=== PATIENT | female | born 1970 | race Two or more races ===

== ENCOUNTER 2017-11-23 12:51 | Emergency (ER) | payer OTHER | END 2017-11-23 13:56 | disposition home or self-care (01) | LOC: ER 12:51 | DX: M43.6 Torticollis (principal) | CPT/HCPCS: 99283 ==

== ENCOUNTER 2018-04-29 10:18 | Emergency (ER) | payer OTHER ==
[~2018-04-29] VITALS: Ht 162.6 cm; Wt 63.5 kg
[~2018-04-29 10:18] MED LIST: DIAZ5TAB PO; IBUP-1007 PO
[2018-04-29 10:32] VITALS: BP 135/89
--- NOTE | 2018-04-29 10:57 | PHYS DOC ---
Past Medical History Past Medical History: No Pertinent History Past Surgical History: Tubal ligation Alcohol Use: None Drug Use: None Adult General Chief Complaint Chief Complaint: MUSCLE SPASM/CRAMP HPI HPI 47 y/o female presents to ER with family who are translating as pt speaks minimal [place]e. Pt woke this morning with neck pain with increased pain with movements. She denies fever, recent illness, sore throat, or recent injury. She denies any OTC meds for pain. She denies SIM, dizziness, or tinnitus. Review of Systems Review of Systems Constitutional: Denies fever or chills [] Eyes: Denies change in visual acuity, redness, or eye pain [] HENT: Denies nasal congestion or sore throat [] Respiratory: Denies cough or shortness of breath [] Cardiovascular: No additional information not addressed in HPI [] GI: Denies abdominal pain, nausea, vomiting, bloody stools or diarrhea [] : Denies dysuria or hematuria [] Musculoskeletal: Denies back pain or joint pain [] Integument: Denies rash or skin lesions [] Neurologic: Denies headache, focal weakness or sensory changes [] Endocrine: Denies polyuria or polydipsia [] All other systems were reviewed and found to be within normal limits, except as documented in this note. Current Medications Current Medications Current Medications Medications (Trade) Dose Ordered Sig/Sunni Start Time Stop Time Status Last Admin Dose Admin Ibuprofen (Motrin) 600 mg 1X ONCE 04/29/18 11:00 04/29/18 11:01 DC 04/29/18 11:01 600 MG Lidocaine (Lidoderm) 1 patch DAILY 04/29/18 11:30 04/29/18 12:07 DC 04/29/18 11:23 1 PATCH Allergies Allergies Allergies Coded Allergies Type Severity Reaction Last Updated Verified No Known Drug Allergies 08/02/13 No Physical Exam Physical Exam Constitutional: Well developed, well nourished, no acute distress, non-toxic appearance. [] HENT: Normocephalic, atraumatic, bilateral external ears normal, oropharynx moist, no oral exudates, nose normal. [] Eyes: PERRLA, EOMI, conjunctiva normal, no discharge. [] Neck: Normal range of motion, no tenderness, supple, no stridor. [] Cardiovascular:Heart rate regular rhythm, no murmur [] Lungs & Thorax: Bilateral breath sounds clear to auscultation [] Abdomen: Bowel sounds normal, soft, no tenderness, no masses, no pulsatile masses. [] Skin: Warm, dry, no erythema, no rash. [] Back: No tenderness, no CVA tenderness. [] Extremities: No tenderness, no cyanosis, no clubbing, ROM intact, no edema. [] Neurologic: Alert and oriented X 3, normal motor function, normal sensory function, no focal deficits noted. [] Psychologic: Affect normal, judgement normal, mood normal. [] Current Patient Data Vital Signs Vital Signs Date Time Temp Pulse Resp B/P (MAP) Pulse Ox O2 Delivery O2 Flow Rate FiO2 04/29/18 10:32 97.8 85 16 135/89 (104) 99 Room Air 97.8 EKG EKG [] Radiology/Procedures Radiology/Procedures PROCEDURE: CERVICAL SPINE 2-3V EXAM: AP and lateral views of the cervical spine DATE: 04/29/2018 10:59 AM CLINICAL HISTORY: WOKE THIS MORNING WITH A STIFF NECK, NO KNOWN INJURY. COMPARISON: None available. FINDINGS: On the lateral view, the cervical spine is imaged from the skull base to mid C7. Vertebral body heights are preserved. 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 Straightening of the normal cervical lordosis. No spondylolisthesis. Normal predental space. No significant prevertebral soft tissue swelling. IMPRESSION: 1. No evidence of acute fracture or subluxation. 2. 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 Electronically signed by: Bashir Conteh MD (04/29/2018 11:28 AM) [facility] DICTATED and SIGNED BY: BASHIR CONTEH MD DATE: 04/29/18 1122 Course & Med Decision Making Course & Med Decision Making Pertinent Imaging studies reviewed. (See chart for details) 1150: Dragchristel Disclaimer Dragon Disclaimer This electronic medical record was generated, in whole or in part, using a voice recognition dictation system. Departure Departure Impression: Primary Impression: Neck pain Disposition: 01 HOME, SELF-CARE Condition: STABLE Referrals: YOAN SUE NP (PCP) CHANCE HEATH MD Patient Instructions: Cervical Radiculopathy, Muscle Strain Additional Instructions: Ice or heat compress to affected area every 3-4 hours for 20-30 minutes at a time for pain. Tylenol and/or ibuprofen as directed on container as needed for pain. If symptoms persist follow-up with orthopedic doctor or primary care physician for reevaluation and further care. Scripts Lidocaine (Lidocaine) 1 Each Adh..patch 1 EACH TP q 12 hrs PRN for PAIN, #4 PATCH 0 Refills Remove and Change patch every 12 hours Prov: ADAM LUZ APRN 04/29/18 ADAM LUZ APRN Apr 29, 2018 10:57
[2018-04-29] MEDS ORDERED: IBUPROFEN 600 MG TABLET. PO ONE (11:00)
[2018-04-29] MEDS ORDERED: LIDOCAINE (700MG/PATCH) PATCH. TD SCH (11:30)
--- NOTE | 2018-04-29 11:32 | RAD ---
EXAM: AP and lateral views of the cervical spine DATE: 04/29/2018 10:59 AM CLINICAL HISTORY: WOKE THIS MORNING WITH A STIFF NECK, NO KNOWN INJURY. COMPARISON: None available. FINDINGS: On the lateral view, the cervical spine is imaged from the skull base to mid C7. Vertebral body heights are preserved. 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 Straightening of the normal cervical lordosis. No spondylolisthesis. Normal predental space. No significant prevertebral soft tissue swelling. IMPRESSION: 1. No evidence of acute fracture or subluxation. 2. 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 Electronically signed by: Bashir Montelongo MD (04/29/2018 11:28 AM) [facility]
[2018-04-29] MEDS ORDERED: LIDO700A39 TP (12:02)
== END 2018-04-29 12:06 | disposition home or self-care (01) ==
LOC: ER 10:18
DX: M54.2 Cervicalgia (principal)
CPT/HCPCS: 72040; 99283